=== PATIENT | female | born 1995 | race Hispanic/Latino ===

== ENCOUNTER 2019-06-28 12:18 | Emergency (ER) | payer SELFPAY ==
[~2019-06-28] VITALS: Ht 157.5 cm; Wt 62.3 kg
--- NOTE | 2019-06-28 12:30 | NUR ---
Pt c/o swelling but no visible swelling in ankles and positive pedal pulses and popliteal pulses.
--- NOTE | 2019-06-28 13:13 | Emergency Department Note ---
History of Present Illnes History of Present Illness Chief Complaint: bilateral ankle pain History of Present Illness This is a 24 year old female. was doing well until 2 weeks ago then inverted both ankles s/ tripping over a huge stone. then some swelling. Historian: Patient Arrival Mode: Car History limited by: condition of the patient (normal) [employer] Grade Teacher Required: No Onset (how long ago): week(s) (2 weeks) Location: bilateral ankles Quality: sharp Radiation: non-radiation Severity: mild Onset quality: sudden Duration (how long): week(s) (2) Timing of current episode: constant Progression: unchanged Chronicity: new Context: recent illness, recent surgery, recent immobilization, recent travel; trauma/injury; new medications, hx of DVT/PE, non-compliance w/ medications Relieving factors: rest Exacerbating factors: movement Associated symptoms: denies other symptoms Treatments prior to arrival: none Risk factors: n/a Past Medical/Family History Physician Review I have reviewed the patient's past medical and family history. Any updates have been documented here. Past Medical History Recent Fever: No Clinical Suspicion of Infectio: No New/Unexplained Change in Ment: No Past Medical History: None Past Surgical History: None Other Surgery: WISDOM TEETH Social History Smoking Cessation: Never Smoker Counseling Performed: No Alcohol Use: Occasional Any Illegal Drug Use: No TB Exposure/Symptoms: No Physically hurt or threatened: No Other Last Tetanus: UTD Any Pre-Existing Lines (PICC,: No Is patient up to date on immun: Yes Last Flu: none Last Pneumovax: none Review of Systems Review of Systems Constitutional: no symptoms EENTM: no symptoms Cardiovascular: no symptoms Respiratory: no symptoms Gastrointestinal: no symptoms Genitourinary: no symptoms Musculoskeletal: joint pain, joint swelling Neurological: no symptoms Psychological: no symptoms Endocrine: no symptoms Hematological/Lymphatic: no symptoms Review of other systems All other systems reviewed and negative. Physical Exam Related Data Allergies: Coded Allergies: Penicillins (Verified Allergy, Intermediate, stomach upset/vomiting, 06/28/19) amoxicillin (Verified Allergy, Unknown, 03/22/16) Physical Exam CONSTITUTIONAL Constitutional: well-developed, well-nourished HENT HENT: normocephalic, atraumatic, oropharynx clear/moist, nose normal HENT L/R: left ext ear normal, right ext ear normal EYES Eyes: PERRL, conjunctivae normal NECK Neck: ROM normal, supple PULMONARY Pulmonary: effort normal, breath sounds normal CARDIOVASCULAR Cardiovascular: regular rhythm, heart sounds normal, capillary refill normal, normal rate GASTROINTESTINAL Abdominal: soft, nontender, bowel sounds normal GENITOURINARY Genitourinary: exam deferred SKIN Skin: warm, dry MUSCULOSKELETAL Musculoskeletal: ROM normal, tenderness (bilateral ankles), other (bilateral legs normal/nontender/no swelling); edema, deformity, swelling NEUROLOGICAL Neurological: alert, oriented x 3, no gross motor or sensory deficits PSYCHOLOGICAL Psychological: mood/affect normal, judgement normal Critical Care Time Subsequent provider I assumed direction of critical care for this patient from another provider of my specialty. Assessment & Plan Assessment & Plan Problems: (1) Ankle sprain Assessment & Plan take prednisone prn to control pain. f/u zachary dennison-ortho Depart Disposition: HOME, SELF-CARE SAROJ PALACIOS June 28, 2019 13:13
== END 2019-06-28 13:02 | disposition home or self-care (01) ==
LOC: FSED 12:18
DX: M25.572 Pain in left ankle and joints of left foot (principal); M25.571 Pain in right ankle and joints of right foot; S93.402A Sprain of unspecified ligament of left ankle, initial encounter; S93.401A Sprain of unspecified ligament of right ankle, initial encounter; W22.8XXA Striking against or struck by other objects, initial encounter; Z91.14 Patient's other noncompliance with medication regimen; Z86.718 Personal history of other venous thrombosis and embolism
CPT/HCPCS: 99282